=== PATIENT | female | born 1985 | race Two or more races ===

== ENCOUNTER 2025-02-03 22:21 | Emergency (ER) | payer MEDICAID, SELFPAY ==
[2025-02-03 22:24] VITALS: BP 153/73; PULSE 79; RESP 17; TEMP 36.7; O2SAT 98
[2025-02-03 22:36] VITALS: PULSE 86; O2SAT 99; BMI 33.2
--- NOTE | 2025-02-03 22:47 | PD.EDCHEST ---
ED Chest Pain RME/HPI General Chief Complaint: Chest Pain Stated Complaint: SYNCOPE Time Seen by Provider: 02/03/25 22:27 Arrival date/time: 02/03/25 22:21 RME / HPI RME / HPI narrative: DR. BECKIE LUNDBERG ED EVALUATION: 39 y/o female ÁNGELA presents to ED c/o chest pain and shortness of breath x 1 day. Reports lightheadedness and possible near syncopal or syncopal episode. Patient is unsure whether she lost consciousness or not. Patient went to the restroom to get ready to shower then began feeling shortness of breath so severe that she was unable to speak and had generalized chest pain. She does not recall if she passed out. Reports last similar episode occurred in July, but states her symptoms were not as severe. LMP was 1.5 weeks ago. Denies fever, sweats, cough, urinary symptoms, or sore throat. No other concerns or complaints expressed at this time. Related Data Previous Rx's ?Medication ?Instructions ?Recorded lorazepam 0.5 mg tablet 0.5 mg PO BID PRN anxiety #5 tabs 02/04/25 lorazepam 0.5 mg tablet (Ativan) 0.5 mg PO BID PRN anxiety #5 tabs 02/04/25 lorazepam 0.5 mg tablet (Ativan) 0.5 mg PO BID PRN anxiety #5 tabs 02/04/25 Allergies Allergy/AdvReac Type Severity Reaction Status Date / Time No Known Allergies Allergy Verified 02/03/25 22:46 Review of Systems Review of Systems Systems Reviewed: All systems reviewed, normal except as documented Past Medical History Social History SMOKING STATUS: Never smoker ED Exam Narrative Physical exam: GENERAL APPEARANCE: alert and oriented x 4, well-developed, well-nourished, no acute distress VITALS: All vitals were reviewed and the pulse ox is 98% on room air, which is normal according to my interpretation. HEENT: Normocephalic, atraumatic; pupils equal, round, reactive to light; EOMI; mucous membranes pink, moist; oropharynx clear NECK: Supple LUNGS: CTABL; no wheezes, no rales, no rhonchi HEART: Regular rate, regular rhythm; normal S1, S2; no murmurs ABDOMEN: non distended; normal BS; soft, no tenderness, no guarding, no rebound; no masses, no organomegaly, no hernia BACK: no CVA tenderness EXTREMITIES: atraumatic; no edema NEUROLOGIC: awake; alert and oriented x4; cranial nerves II-XII grossly intact; no focal sensory or motor deficits PSYCHIATRIC: appropriate mood and affect SKIN: warm, dry, normal color; no rashes Course Course Course Narrative: Leticia is a 39-year-old female who presented to the emergency department after an episode at home of some chest discomfort, some shortness of breath such that she was unable to speak and a extreme form of fear. Patient was feeling better when she arrived in the ER but still had some of the symptoms. A chest pain workup was ordered, thyroid studies and an Ativan was ordered p.o. labs are basically normal. EKG is nonischemic appearing. Patient is feeling much better after Ativan. Will discharge the patient with a adult family member driving her home and she will follow-up with her primary care doctor within the next several days. Quality Measures none Orders Category Date Time Status Salesperson Household Appliances STAT Care 02/03/25 22:46 Completed Continuous Pulse Oximetry ONCE Care 02/03/25 22:46 Completed EKG (ED ONLY) *Do not use* NOW Care 02/03/25 22:46 Completed Insert IV STAT Care 02/03/25 22:46 Completed EKG (ED Only) Stat Exams 02/03/25 22:46 Ordered XR chest 1V portable Stat Exams 02/03/25 22:46 Completed B-Type Natriuretic Peptide Stat Lab 02/03/25 23:20 Completed CBC Stat Lab 02/03/25 23:20 Completed Comprehensive Metabolic Panel Stat Lab 02/03/25 23:20 Completed Free T4 (Free Thyroxine) Stat Lab 02/03/25 23:20 Completed Magnesium Stat Lab 02/03/25 23:20 Completed TSH [Thyroid Stimulating Hormone] Stat Lab 02/03/25 23:20 Completed Troponin I Stat Lab 02/03/25 23:20 Completed LORazepam [Ativan Inj] Med 02/03/25 22:46 Discontinued 0.5 mg IVP X1 ONE Oxygen Delivery NOW RT 02/03/25 22:46 Completed Reevaluation(s) Time: 23:41 (Patient is resting comfortably in the exam room. Symptoms are improving. She has no requests or concerns. We are awaiting the remainder of her workup) Time: 00:38 (Patient's workup is complete. Troponins are negative, EKG is nonischemic appearing. Thyroid studies are normal. Electrolytes are normal. Normal liver and renal function. Patient is feeling much better with Ativan. Will discharge with instructions to follow-up with her primary care doctor withi) Vital Signs Vital signs: Vital Signs Temperature 98.0 F 02/03/25 22:24 Pulse Rate 79 02/03/25 22:24 Respiratory Rate 17 02/03/25 22:24 Blood Pressure 153/73 H 02/03/25 22:24 Pulse Oximetry (%) 98 02/03/25 22:24 Oxygen Delivery Method Room Air 02/03/25 22:24 Chest Pain MDM Narrative MDM Narrative:: Scribe Attestation: ILaurie, am scribing for and in the presence of Dr. Reyna. Provider Notation: Although this document has been carefully reviewed, there may still be some phonetic and other typographical errors. These errors are purely grammatical due to imperfections in the software program and should not be construed in any way to compromise the substance of the patient's medical care during this visit. Patient data External records reviewed:: [facility] previous records (No prior ED records available for review) and EMS form Clinical information provided by:: patient and EMS Social determinants that could affect healthcare access:: none Patient has the following chronic illnesses:: None reported How is presenting disease/condition affected by chronic disease/condition?: no chronic disease (None reported) Evaluation data The following diagnostics were reviewed and interpreted by me:: lab results, radiology exam(s) and EKG tracing(s) (2231: Normal sinus rhythm, rate of 69 BPM, normal axis, no ectopy, no acute ischemia.) Lab and/or radiology exams considered but not ordered:: None Interpretation Summary: CBC is normal, CMP is normal, Troponin is normal, BNP is normal, TSH and Free T4 are normal, according to my interpretation. Patient: LETICIA MONROE [facility]. Record#: [id number] Birthdate: 1985 Age/Sex: 39 / F Location: [facility] Attending Dr: Ordering Physician: Jamel Reyna MD Date of Service: 02/03/25 Procedure(s): XR chest 1V portable Accession Number(s): [id number] cc: Jim Jordan MD; Jamel Reyna MD~ Examination: PA chest single view Technique: Upright PA chest single view. Exam date and time: February 03, 2025, 11:41 PM Indications: Onset chest pain today Findings: Normal heart size. Lungs are clear. Osseous structures are intact. Impression: No active disease Dictated By: Jim Jordan MD Signed By: <Electronically signed by Jim Jordan MD in OV> 02/03/25 7638 Medications / Prescriptions Medications or Prescriptions considered but not ordered:: None Medication administrations:: Medication Administration History Discontinued Medications Lorazepam (Lorazepam 2 Mg/Ml Vial) 0.5 mg IVP X1 ONE Stop: 02/03/25 22:47 Last Admin: 02/04/25 00:20 Dose: 0.5 mg Documented By: MC See above if any Consultations Consultation(s) initiated? (list below): No Diagnosis Chest Pain Differential Diagnosis: costochondritis and other (anxiety, anxiety reaction, pneumonia) Most likely diagnosis given after review of the tests above:: Chest pain, Anxiety reaction Admission Indicated Admission indicated?: not indicated Admission Request Was there a request for admission?: No Disposition Plan Disposition Plan: Discharge Discharge Attestation Discharge Attestation: The patient and all family members were given an opportunity to ask questions and understood the discharge instructions. Discharge instructions specifically effects, indications for sooner follow up or return to the emergency department, and the expected course of current diagnosis. Patient condition: Stable Discharge Plan Plan Patient Disposition: HOME (Self Care) Disposition Comment: Stable for discharge home Patient condition on transfer: Stable Prescriptions/Referrals Prescriptions/Med Rec: New lorazepam [Ativan] 0.5 mg tablet 0.5 mg PO BID MDD 2 tabs PRN (Reason: anxiety) Qty: 5 0RF lorazepam 0.5 mg tablet 0.5 mg PO BID PRN (Reason: anxiety) Qty: 5 0RF lorazepam [Ativan] 0.5 mg tablet 0.5 mg PO BID PRN (Reason: anxiety) Qty: 5 0RF Referrals: [facility] [Provider Group] - In 1 week Ziggy Penny MD [Physician] - In 1 week Problem List Clinical Impression: Chest pain, Anxiety reaction Patient/Caregiver Discharge Instructions Discharge Activity: activity as tolerated Education Materials: ED Anxiety Reaction, ED Chest Pain, Uncertain Cause Additional Instructions: Please return to the emergency department if you have any worsening or any further medical problems and we will help you. Otherwise you should follow-up with your primary care doctor within the next several days. I have given you the contact information for Dr. Aviles. 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 Please give his office a call and make a follow-up appointment. Tonight your EKG, your chest x-ray and all of your blood work was normal. Print Language: [place] Stand Alone Forms: Radha Award Info., Patient Portal Info Letter
[2025-02-03 23:44] LABS: Basophils % (Auto) 0 % (0-2.5); Eosinophils # (Auto) 0.1 Thou/mm3 (0.0-0.5); Eosinophils % (Auto) 2 % (0-10); Hematocrit 41.9 % (36.0-46.0); Hemoglobin 14.4 g/dL (12.0-16.0); Immature Granulocytes % (Auto) 0 % (0-0); Immature Granulocytes Auto 0.02 Thou/mm3 (0.00-0.00); Lymphocytes # (Auto) 3.3 Thou/mm3 (1.0-4.8); Lymphocytes % (Auto) 43 % (10-50); Mean Corpuscular HGB Conc 34.4 g/dl (31.0-37.0); Mean Corpuscular Hemoglobin 28.7 pg (25.0-35.0); Mean Corpuscular Volume 84 fL (80-100); Monocytes # (Auto) 0.6 Thou/mm3 (0.0-0.8); Monocytes % (Auto) 7 % (0-12); Neutrophils # (Auto) 3.7 Thou/mm3 (1.8-7.7); Neutrophils % (Auto) 48 % (37-80); Nucleated Red Blood Cell % 0 /100 WBC (0); Platelet Count 247 Thou/mm3 (140-440); RDW Standard Deviation 39.8 fL (36.4-46.3); Red Blood Count 5.01 Miln/mm3 (4.00-5.20); White Blood Count 7.7 Thou/mm3 (3.6-11.0)
[2025-02-04] LABS: B-Type Natriuretic Peptide 28 pg/mL (0-100)
[2025-02-04 00:02] LABS: Alanine Aminotransferase 20 U/L (10-49); Albumin, Serum 4.4 gm/dL (3.5-5.0); Albumin/Globulin Ratio 1.4 (1.2-2.2); Alkaline Phosphatase 98 U/L (46-116); Anion Gap 10 (7-16); Aspartate Amino Transferase 35 U/L (0-34); BUN/Creatinine Ratio 13 Ratio (12-20); Bilirubin,Total 0.2 mg/dL (0.3-1.2); Blood Urea Nitrogen 9 mg/dL (9-23); Calcium 9.3 mg/dL (8.3-10.6); Calcium (Corrected) 9.3 mg/dL (8.5-10.1); Carbon Dioxide 23.8 mMol/L (20.0-31.0); Chloride 109 mMol/L (98-107); Creatinine (Component) 0.7 mg/dL (0.6-1.3); Globulin 3.1 gm/dL (2.3-3.5); Glucose 112 mg/dL (74-106); Osmolality,Calculated 284 (275-295); Sodium 143 mMol/L (136-145); Total Protein 7.5 gm/dL (5.7-8.2); Troponin I < 0.020 ng/mL (0.0-0.045); eGFR > 60 See Note
[2025-02-04 00:03] LABS: Free T4 (Free Thyroxine) 1.23 ng/dL (0.89-1.76); Thyroid Stimulating Hormone 3.67 uIU/mL (0.55-4.78)
[2025-02-04] MEDS: LORazepam 2 MG/ML VIAL 0.5 MG IVP (00:20)
[2025-02-04 00:22] VITALS: PULSE 66; PULSE 67; RESP 17; RESP 99
[2025-02-04 00:38] VITALS: BP 161/99; PULSE 73; RESP 17; TEMP 36.6; O2SAT 98
[2025-02-04 01:46] VITALS: BP 145/86; PULSE 76; RESP 18; TEMP 36.6; O2SAT 96
== END 2025-02-04 02:05 | disposition home or self-care (01) ==
LOC: SERX 02-04 01:09
PROVIDERS: Emergency Provider Emergency Medicine
DX: F41.1 Generalized anxiety disorder (principal); R07.9 Chest pain, unspecified; I49.8 Other specified cardiac arrhythmias
CPT/HCPCS: 36415; 71045; 80053; 83735; 83880; 84439; 84443; 84484; 85025; 93005; 96374; 99284; J2060